=== PATIENT | male | born 1990 | race Caucasian/White ===

== ENCOUNTER 2018-08-02 19:01 | Emergency (ER) | payer MEDICAID, SELFPAY ==
[2018-08-02 19:02] VITALS: BP 134/79; PULSE 92; RESP 18; TEMP 36.7; O2SAT 95; BMI 22.6
--- NOTE | 2018-08-02 20:12 | ED.RN ---
pt walked off of unit states this shit hurts man and i've already been waitin' for a while. i'm just going to go now.
== END 2018-08-02 20:31 | disposition left against medical advice (07) ==
LOC: ED 20:25
PROVIDERS: Emergency Provider Emergency Medicine
DX: R69 Illness, unspecified (principal); Z53.21 Procedure and treatment not carried out due to patient leaving prior to being seen by health care provider

== ENCOUNTER 2018-08-03 15:37 | Emergency (ER) | payer SELFPAY ==
[2018-08-02 19:02] VITALS: BMI 22.6
[2018-08-03 15:38] VITALS: BP 140/81; PULSE 117; RESP 16; TEMP 37.3; O2SAT 98; BMI 21.3
--- NOTE | 2018-08-03 16:06 | ED.DCSUM_ITS ---
- ER Visit Summary Date of Service: 08/03/18 Chief Complaint: [Pain, redness, swelling left foot and ankle presents the emergency department] History of Present Illness: The patient is a 28 M [presents the emergency department with above complaints that started yesterday morning. Patient states that he has had episodes like this in the past when he is worn high socks and typically once he takes them off symptoms resolved within a day or 2. Patient denies any fever. He denies any breaks in the skin. He denies any IV drug use. He has no history of gout or pseudogout. HEENT-PERRLA, EOMI. Cranial nerves II through XII grossly intact. TMs clear. Mucous membranes moist. No adenopathy. Cardiovascular-regular rate and rhythm without murmur or ectopy Lungs-clear to auscultation, chest wall stable without crepitus or subcu emphysema Abdomen-normoactive bowel sounds, soft, nontender, no rebound or rigidity, no peritoneal signs. Extremities-intact ?4, normal range of motion, normal pulses, atraumatic. Left foot and ankle-patient has diffuse erythema and edema to the medial malleolus and medial foot extending onto the dorsum of the foot. Patient has normal dorsal pedal and posterior tibial pulses as well as popliteal pulses. He is neurovascular intact. Right ankle-patient also has some faint erythema developing over the medial malleolus. Neurovascularly intact.] Physical Examination: [] Test Results: [] Emergency Department Course and Treatment: [] Treatment Plan: [] Disposition: [] Impression: [] This note was generated with [employer] dictation software. It may contain incorrect words, spelling, and punctuation that were not noted in review of the chart prior to signing ED Disposition - Plan for ED Patient: Referrals: Care Physician,No Primary [Primary Care Provider] -
[2018-08-03] MEDS: Ketorolac 30 MG/ML Syringe IV (16:08)
[2018-08-03 16:31] LABS: Absolute Lymphocyte Count 2.23 X10^3/ul (0.83-4.51); Absolute Neutrophil Count 8.8 X10^3/uL (2.0-7.7); Basophil# 0.04 X10^3/uL; Basophil% 0.3 % (0-1); Eosinophils% 1.6 % (0-5); Hematocrit 40.7 % (40-54); Hemoglobin 13.3 g/dl (13.0-16.5); Lymphocyte # 2.23 X10^3/ul (4.0); Lymphocyte % 17.4 % (19-41); Mean Corp Hgb Conc 32.7 g/gl (32-36); Mean Corpuscular Hgb 27.7 pg (27.0-32.0); Mean Corpuscular Volume 84.6 fL (80-94); Mean Platelet Vol. 9.7 fl (6.2-12.0); Monocyte# 1.54 X10^3/uL; Neutrophil % 68.5 % (47-70); Platelet Count 258 K/mm3 (150-450); RBC Distribution Width CV 13.5 % (11.6-14.6); Red Blood Count 4.81 M/mm3 (4.6-6.2); White Blood Count 12.8 K/mm3 (4.4-11.0)
[2018-08-03 16:34] LABS: Differential Indicated SCAN CRITERIA MET; POSITIVE COUNT NO; POSITIVE DIFFERENTIAL YES; POSITIVE MORPHOLOGY NO
--- NOTE | 2018-08-03 16:40 | ED.DEP ---
ED Disposition - Plan for ED Patient: Instructions: Discharge Instructions for Cellulitis Prescriptions: Cephalexin [Keflex] 500 mg PO Q6 #40 cap Naproxen [Naprosyn] 500 mg PO BID PRN #20 tab Smz/Tmp Ds [Bactrim Ds] 1 tab PO BID #20 tab Referrals: Care Physician,No Primary [Primary Care Provider] - Dino Cotton MD [STAFF PHYSICIAN] - 3-5 Days
[2018-08-03 16:41] LABS: Anion Gap 8 (5-15); BUN 16 mg/dL (7-18); BUN/Creat Ratio 18.8 RATIO (10-20); Calcium,Total 8.9 mg/dL (8.5-10.1); Chloride 102 mmol/L (98-107); Creatinine, Serum 0.85 mg/dL (0.70-1.30); EST Glomerular Filtration Rate 116 mL/min (>60); Est Glom Filt Rate - Afr Amer 140 mL/min (>60); Estimated Creatinine Clearance 111.53 ml/min; Glucose 80 mg/dL (74-106); Potassium 3.9 mmol/L (3.5-5.1); Sodium Level 136 mmol/L (136-145)
[2018-08-03 16:50] LABS: Lactic Acid 1.5 mmol/L (0.4-2.0)
[2018-08-03 16:55] LABS: Platelet Estimate ADEQUATE (ADEQ)
[2018-08-03 16:56] LABS: Red Cell Morphology NORM C+C NORMAL (NORM C&C)
--- NOTE | 2018-08-03 16:56 | ED.VISSUMM ---
- ER Visit Summary Date of Service: 08/03/18 Chief Complaint: [Addendum to initial dictation History of Present Illness: The patient is a 28 M [] Physical Examination: [] Test Results:] CBC with differential showed a white count 12.8, hemoglobin 13, hematocrit 41, placed 258. Chemistries were unremarkable. Lactate was 0.8. Emergency Department Course and Treatment: [Patient received Unasyn 3 g IV as well as Toradol 30 mg IV patient had the area of erythema outlined in permanent marker] Treatment Plan: [Patient will be started on Bactrim and Keflex as well as given prescription for naproxen discharge. Patient given crutches. Patient advised to follow-up with primary care physician strategy planning consultant for no doc within next 3 to 5 days for wound check.] Disposition: [Discharge to home in stable condition. Patient advised to return if worsening pain, increased redness, fevers, or condition should worsen anyway.] Impression: [Cellulitis left ankle and foot Early cellulitis right ankle] This note was generated with [employer] dictation software. It may contain incorrect words, spelling, and punctuation that were not noted in review of the chart prior to signing ED Disposition - Plan for ED Patient: Instructions: Discharge Instructions for Cellulitis Prescriptions: Cephalexin [Keflex] 500 mg PO Q6 #40 cap Naproxen [Naprosyn] 500 mg PO BID PRN #20 tab Smz/Tmp Ds [Bactrim Ds] 1 tab PO BID #20 tab Referrals: Dino Cotton MD [STAFF PHYSICIAN] - 3-5 Days Care Physician,No Primary [Primary Care Provider] -
--- NOTE | 2018-08-03 16:59 | ED.DCSUM_ITS ---
- ER Visit Summary Date of Service: 08/03/18 Chief Complaint: [Addendum to initial dictation History of Present Illness: The patient is a 28 M [] Physical Examination: [] Test Results:] CBC with differential showed a white count 12.8, hemoglobin 13, hematocrit 41, placed 258. Chemistries were unremarkable. Lactate was 0.8. Emergency Department Course and Treatment: [Patient received Unasyn 3 g IV as well as Toradol 30 mg IV patient had the area of erythema outlined in permanent marker] Treatment Plan: [Patient will be started on Bactrim and Keflex as well as given prescription for naproxen discharge. Patient given crutches. Patient advised to follow-up with primary care physician animal control specialist for no doc within next 3 to 5 days for wound check.] Disposition: [Discharge to home in stable condition. Patient advised to return if worsening pain, increased redness, fevers, or condition should worsen anyway.] Impression: [Cellulitis left ankle and foot Early cellulitis right ankle] This note was generated with [employer] dictation software. It may contain incorrect words, spelling, and punctuation that were not noted in review of the chart emma or to signing ED Disposition - Plan for ED Patient: Instructions: Discharge Instructions for Cellulitis Prescriptions: Cephalexin [Keflex] 500 mg PO Q6 #40 cap Naproxen [Naprosyn] 500 mg PO BID PRN #20 tab Smz/Tmp Ds [Bactrim Ds] 1 tab PO BID #20 tab Referrals: Dino Cotton MD [STAFF PHYSICIAN] - 3-5 Days Care Physician,No Primary [Primary Care Provider] -
[2018-08-03 17:07] VITALS: BP 135/77; PULSE 62; RESP 17; O2SAT 96
[2018-08-07 12:57] LABS: Pathologist Review Reviewed
== END 2018-08-03 17:15 | disposition home or self-care (01) ==
LOC: ED 16:22
PROVIDERS: Emergency Provider Emergency Medicine
DX: L03.116 Cellulitis of left lower limb (principal); L03.115 Cellulitis of right lower limb; Z72.0 Tobacco use
CPT/HCPCS: 80048; 83605; 85025; 96365; 96375; 99285; J7050; J0295

== ENCOUNTER 2020-12-28 16:24 | Emergency (ER) | payer MEDICAID, SELFPAY ==
[2020-12-28 16:26] VITALS: BP 104/87; PULSE 102; RESP 18; TEMP 36.5; O2SAT 98; BMI 22.7
--- NOTE | 2020-12-28 17:23 | EDS_ITS ---
HPI History of Present Illness Chief Complaint: Other, Pain/Inj Detail of Chief Complaint: Swelling to upper lip Informant: patient Narrative Narrative: Patient presents to the emergency department with swelling to his upper lip. Patient states that yesterday he popped a pimple right at the vermilion border of the upper lip and expressed some purulent debris. Patient states half an hour later the lip started to swell. He denies fevers or chills or sweats. He denies any IV drug use. Patient has never had this happen before. Prior similar symptoms: No PFSH PFSH Home Medications clindamycin HCl [Cleocin HCl] 300 mg PO Q6H #40 capsule 12/28/20 [Rx Last Taken Unknown] hydrocodone-acetaminophen 1 tab PO Q4H PRN PRN 2 Days #10 tablet 12/28/20 [Rx Last Taken Unknown] Allergy/AdvReac Type Severity Reaction Status Date / Time No Known Allergies Allergy Verified 12/28/20 16:28 Social History Smoking Status: Current every day smoker ROS ROS ED Constitutional Constitutional ED: Reports systems reviewed and no addt'l complaints, except as documented; Denies body ache(s), change in weight or chills Eyes Eyes: Denies acute decrease in peripheral vision, change in vision, double vision or loss of vision ENT ENT ED: Reports none and other Details: Swelling of upper lip ; Denies ear pain, lip swelling, loss taste/smell, neck pain, otalgia or sore throat Cardiovascular Cardiovascular: Reports none; Denies abdominal pain, chest pain with activity, leg edema, lightheadedness, palpitations, rapid heart rate or syncope Respiratory/Chest Respiratory/Chest: Reports none; Denies change in mental status, dry cough, dyspnea, hemoptysis, shortness of breath at rest or shortness of breath with exertion Gastrointestinal Gastrointestinal: Reports none; Denies abdominal pain, change in stool character, diarrhea, hematemesis, hematochezia, melena, rectal bleeding or vomiting Genitourinary Genitourinary ED: Reports none; Denies abdominal discomfort, anuria, dysuria, genital pain or polyuria Musculoskeletal Musculoskeletal: Reports none; Denies arthralgias, back pain, difficulty walking, extremity pain, muscle weakness or myalgias Integumentary Reports none; Denies abscess or rash Neurologic Neurologic: Reports none; Denies abnormal gait, confusion, focal weakness, frequent falls, headache(s), loss of vision, numbness, paresthesias, radicular pain, vertigo or weakness Psychiatric Psychiatric: Reports systems reviewed and no addt'l complaints, except as documented and none; Denies behavioral changes, confusion, difficulty concentrating, hallucinations, suicidal ideation, tactile hallucinations or visual hallucinations Endocrine Endocrinology: Denies none, cold intolerance, excessive sweating, fatigue or heat intolerance Hematologic/Lymphatic Hematologic/Lymphatic: Reports none; Denies anemia, easy bleeding or easy bruising Allergic/Immunologic Allergic/Immunologic ED: Denies as per HPI, none, lip swelling, mouth swelling, throat swelling, tongue swelling or hives EXAM Physical Exam Const Vital Signs: 12/28/20 16:26 Temperature 97.7 F L Temperature Source Temporal Pulse Rate 102 H Respiratory Rate 18 Blood Pressure 104/87 H Blood Pressure Mean 92 Pulse Ox 98 Oxygen Delivery Method Room Air Positive well nourished and well developed General Appearance ED: well developed and NAD HEENT Reports TM's clear and moist mucous membranes HEENT Narrative: Patient has excoriated areas involving his face. Patient also has a few excoriations on his upper lip. The upper lip is diffusely swollen and erythematous. No gingival abscesses noted. There is no gingival erythema. No dental pain on palpation of his teeth. I do not palpate any discrete abscesses of his lip. There is no angioedema of the tongue or oropharynx. normocephalic and atraumatic; Negative for trauma or tenderness Tympanic Membrane ED: Yes TM's clear Eyes PERRL and EOMs intact bilaterally General Eye ED: Negative for pale conjunctiva or scleral icterus Neck no lymphadenopathy, supple and no JVD General: Negative for tenderness Chest Wall inspection of chest normal and palpation of chest normal Chest: Negative for tenderness Resp normal respiratory effort and clear to auscultation bilaterally Effort and Inspection: Negative for respiratory distress or pain with movement Auscultation: Negative for rhonchi, wheezes or diminished lung sounds Cardio regular rate, regular rhythm, S1 normal heart sound, S2 normal heart sound and no murmurs Peripheral Pulses: pulses 2+ throughout GI normal to inspection, nondistended, normoactive bowel sounds, soft to palpation, non-tender, non-distended and no masses Back/Spine no CVA tenderness and no thoracic nor lumbar tenderness Extremity normal to inspection General Extremety ED: Negative for edema General Extremity: Negative for edema Neuro oriented x3, CN's II-XII intact bilaterally, no sensory deficits noted and gait normal Sensorium / Orientation: awake, alert, oriented to person, oriented to place and oriented to time Motor Exam: strength 5/5 throughout and strength abnormal Psych mental status grossly normal Skin no rashes or lesions noted and no wounds MDM MDM MDM Narrative Medical decision making narrative: I suspect patient has a cellulitis of the upper lip. Patient will be started on clindamycin and given a few [place] for pain. Patient will be referred to ENT for follow-up within the next 3 to 5 days. He is advised to return if worsening pain, fever, increased swelling, or condition should worsen anyway. Patient will be given a few [place] for pain. Discharge Plan Triage Chief Complaint: Other, Pain/Inj ED Provider: Lindy Yun Dx/Rx/DC Orders Clinical Impression: Cellulitis Instructions: ED Cellulitis Prescriptions: New clindamycin HCl [Cleocin HCl] 300 MG capsule 300 mg PO Q6H Qty: 40 RF: 0 hydrocodone-acetaminophen [hydrocodone-acetaminophen] 1 TABLET tablet 1 tab PO Q4H PRN PRN (Reason: Pain) 2 Days Qty: 10 RF: 0 Primary Care Provider: Care Physician,No Primary Referrals: Dino Loera MD [STAFF PHYSICIAN] - 3-5 Days Care Physician,No Primary [Primary Care Provider] - Disposition Disposition: Home, Self Care
[2020-12-28 17:31] VITALS: RESP 14
[2020-12-28] MEDS: Clindamycin HCl 150 MG Capsule 300 MG PO (17:33)
== END 2020-12-28 17:46 | disposition home or self-care (01) ==
LOC: ED 17:42
PROVIDERS: Emergency Provider Emergency Medicine
DX: K13.0 Diseases of lips (principal); F17.200 Nicotine dependence, unspecified, uncomplicated
CPT/HCPCS: 99283